=== PATIENT | female | born 1995 | race Caucasian/White ===

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

== ENCOUNTER 2017-10-02 15:28 | Emergency (ER) ==
[2017-10-02 15:36] VITALS: BP 140/84; TEMP 98.7; BMI 31.7
--- NOTE | 2017-10-02 15:59 | ED.PDOC ---
General ED Provider: Dr. OCTAVIA GLOVER Chief Complaint: Needlestick Stated Complaint: CC: Needle Stick. 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 PATIENT STATES THAT SHE WAS TUCKING THE SHEETS BETWEEN THE MATRESS AND THE BOX SPRINGS AND WAS STUCK BY A NEEDLE ON WHAT THE PATIENT REPORTED TO BE AN INSULIN SYRINGE. PATIENT STATES THAT THE SYRINGE WAS EMPTY THAT SHE NOTICED. PATIENT IS ALSO APPROXIMATELY 22WKS [address] SEES DR. CADET AT [facility] Time Seen by Physician: 15:40 Mode of Arrival: Walk-In Information Source: Patient Primary Care Provider: CAT MONTOYA Nursing and Triage Documentation Reviewed and Agree: Yes Reviewed sepsis parameters & appropriate labs ordered?: Yes System Inflammatory Response Syndrome: Not Applicable Sepsis Protocol: For patient's 13 years and over: Temp is 96.8 and below OR 101 and greater Pulse >90 BPM Resp >20/minute Acutely Altered Mental Status Are patient's symptoms suggestive of a new infection, such as: -Pneumonia -Skin, Soft Tissue -Endocarditis -UTI -Bone, Joint Infection -Implantable Device -Acute Abdominal Infection -Wound Infection -Meningitis -Blood Stream Catheter Infection -Unknown System Inflammatory Response Syndrome: Not Applicable Environmental Complaint Exam - Nuclear/Biologic/Chemical Complaint/Exam Patient Complains of: Reports: Biological Exposure Exposure Happened: Reports: Seconds Initial Severity: Mild Current Severity: Mild Description of Incident: Patient states was stuck by needle when she was placing hand inbet mattress Type of Exposure: Reports: Open Length of Exposure: Seconds Associated Signs and Symptoms: None Decontamination: No Initial Findings: Present: Tenderness, Abrasion (Puncture wound between 2nd and 3rd mid Rt Metartasal region) Review of Systems - Review Of Systems Constitutional: Reports: No symptoms Eyes: Reports: No symptoms Ears, Nose, Mouth, Throat: Reports: No symptoms Respiratory: Reports: No symptoms Cardiac: Reports: No symptoms GI: Reports: No symptoms : Reports: No symptoms Musculoskeletal: Reports: No symptoms, Other (See CC HPI) Skin: Reports: Other (Puncture wound dorsum Lt Hand) Neurological: Reports: No symptoms Endocrine: Reports: No symptoms Hematologic/Lymphatic: Reports: No symptoms All Other Systems: Reviewed and Negative Past Medical History - Past Medical History Previously Healthy: Yes Endocrine: Reports: None Cardiovascular: Reports: None Respiratory: Reports: None, Other (om) Hematological: Reports: None Gastrointestinal: Reports: None Genitourinary: Reports: None, Other (-recent miscarriage) Neuro/Psych: Reports: None Musculoskeletal: Reports: None Cancer: Reports: None Last Menstrual Period: - Surgical History General Surgical History: Reports: Appendectomy, Cholecystectomy, Other (PET) - Family History Family History: Reports: Unknown (no one else ill) - Social History Smoking Status: Former smoker Hx Substance Use: No Alcohol Screening: None - Immunizations Tetanus Shot up to Date: No Physical Exam - Physical Exam Appearance: Well-appearing Ill-appearing: None Pain Distress: None Eyes: SORAIDA, EOMI, Conjunctiva clear ENT: Ears normal, Nose normal Respiratory: Airway patent, Breath sounds clear Cardiovascular: RRR, Pulses normal GI/: Soft, Nontender, No masses Musculoskeletal: Normal strength Skin: Warm, Dry, Normal color, Pale (dorsum Lt Hand middle aspect beween 2nd and 3rd metacarpal) Neurological: Sensation intact, Motor intact, Reflexes intact Psychiatric: Affect appropriate, Mood appropriate Re-Evaluation - Re-Evaluation Time of Re-Evaluation: 17:30 Status: Unchanged Vital Signs Stable: Yes Appearance: NAD Lungs: Clear Skin: Warm and Dry Neuro: Alert and Oriented X3 CV: RRR - Re-Evaluation Time of Re-Evaluation: 18:10 Additional Comments: Discussed case with [facility] regarding PEP treatment for HIV.see note Critical Care Note - Critical Care Note Total Time (mins): 0 Course - Course Orders, Labs, Meds: Lab Review 10/02/17 16:40 Total Bilirubin < 0.3 Direct Bilirubin 0.13 AST 15 ALT 20 Alkaline Phosphatase 62 Total Protein 6.5 Albumin 2.9 L Orders Category Date Time Status HCV ANTIBODY Stat LAB 10/02/17 16:40 Received HCV RNA BY PCR Stat LAB 10/02/17 16:40 Received HEPATIC PANEL Stat LAB 10/02/17 16:40 Completed HEPATITIS B SURFACE ANTIBODY Stat LAB 10/02/17 16:40 Received HEPATITIS B SURFACE ANTIGEN Stat LAB 10/02/17 16:40 Received RAPID PLASMA REAGIN Stat LAB 10/02/17 16:40 Received Vital Signs: Temp Pulse Resp BP Pulse Ox 10/02/17 15:29 98.7 F 89 20 140/84 98 Departure - Departure Time of Disposition: 18:20 Disposition: HOME SELF-CARE Discharge Problem: Needle stick injury of finger of left hand Instructions: Needle Stick Injuries (ED) Condition: Good Pt referred to PMD for follow-up: Yes (See [employer] or PCP in next week) IPMP verified?: No Additional Instructions: Have HIV testing repeated in 4-6 weeks then at 6 months Have Follow up HCV(hep c) testing in 6 mo Call for results of testing completed here for results or go to PCP /OB physician to get results. Determine Hep B immunity status Wound Cart for Lt hand Allergies/Adverse Reactions: Allergies aloe Adverse Reaction (Verified 10/02/17 15:36) Home Medications: Ambulatory Orders Vit No.129/Iron/Folic [ One Daily Tablet] 1 tab PO DAILY Additional Comments Additional Comments: Discussed case with staff member at [facility] regarding PEP HIV treatment due to concern over her needle stick. Patient states needle appeared Dry.See Additional documentation on dictation
== END 2017-10-02 18:52 | disposition home or self-care (01) ==
LOC: ED 15:28
DX: S61.432A Puncture wound without foreign body of left hand, initial encounter (principal); W26.8XXA Contact with other sharp object(s), not elsewhere classified, initial encounter; Y93.E9 Activity, other interior property and clothing maintenance; Y92.59 Other trade areas as the place of occurrence of the external cause; Y99.0 Civilian activity done for income or pay; Z33.1 Pregnant state, incidental
CPT/HCPCS: 36415; 80076; 86592; 86706; 86803; 87340; 87522; 99283

== ENCOUNTER 2017-10-05 17:30 | Outpatient (CLI) | END 2017-10-05 17:31 | disposition home or self-care (01) | LOC: LAB 17:30 | PROVIDERS: ATTEND Emergency Medicine | DX: T14.8XXA Other injury of unspecified body region, initial encounter (principal); W26.8XXA Contact with other sharp object(s), not elsewhere classified, initial encounter; Y99.0 Civilian activity done for income or pay | CPT/HCPCS: 36415; 86701 ==